=== PATIENT | male | born 1995 | race Caucasian/White ===

== ENCOUNTER → 2018-05-31 | Outpatient (CLI) | payer SELFPAY ==
--- NOTE | 2018-05-31 09:25 | Diagnostic Imaging Report ---
EXAM: RIGHT UPPER QUADRANT ULTRASOUND DATE: May 31, 2018. COMPARISON: None. INDICATION: 22-year-old male, right upper quadrant abdominal pain. PROCEDURE: Two-dimensional grayscale and color doppler ultrasound examination of the right upper quadrant is performed. FINDINGS: Liver: The liver is of normal size and echotexture without solid or cystic masses. Bile ducts and gallbladder: There is no pericholecystic fluid, gallbladder wall thickening or gallstones. The gallbladder wall measures 0.2 cm. There is no intrahepatic or extrahepatic biliary ductal dilation. The common bile duct measures 0.4 cm. Right kidney: Unremarkable right kidney. No hydronephrosis. The right kidney measures 11.0 cm x 5.1 cm x 4.2 cm. Pancreas: Normal visualized pancreas. IMPRESSION: 1. Unremarkable right upper quadrant ultrasound. Dictated by: Dictated on workstation # [id number]
== END ==
LOC: RAD 07:06 → EDSEX 08:15
PROVIDERS: ATTEND Physician Assistant
DX: R10.11 Right upper quadrant pain (principal)
CPT/HCPCS: 76705

== ENCOUNTER 2022-11-09 23:14 | Outpatient (CLI) | payer SELFPAY ==
[~2022-11-09] VITALS: Ht 172 cm; Wt 76.5 kg
[2022-11-09 23:42] VITALS: BP 121/81
[2022-11-09 23:46] LABS: BILIRUBIN,URINE NEGATIVE (NEGATIVE); CLARITY,URINE CLEAR; COLOR,URINE YELLOW; GLUCOSE, URINE (UA) NEGATIVE (NEGATIVE); KETONES,URINE NEGATIVE (NEGATIVE); LEUKOCYTE ESTERASE ,URINE NEGATIVE (NEGATIVE); NITRITE,URINE NEGATIVE (NEGATIVE); PROTEIN,URINE NEGATIVE (NEGATIVE)
[2022-11-09 23:56] LABS: BACTERIA,URINE FEW /HPF; SQUAMOUS EPITHELIAL CELL,UR RARE /HPF; WBC,URINE 0-2 /HPF
[2022-11-10 00:22] VITALS: BP 125/70
[2022-11-10 00:32] VITALS: BP 125/70
--- NOTE | 2022-11-10 08:46 | Physician Query-Final Dx ---
Clinic Account Progress/Dx Physician Query: Please give diagnosis Please include # weeks gestation Date of Service Nov 09, 2022 at 23:14 JOAQUIN,AugNov 10, 2022 08:46
== END 2022-11-10 00:32 ==
LOC: WSo 23:14 → LDRP 23:15 → WSo 11-10 00:32
PROVIDERS: ATTEND Family Medicine
DX: O26.893 Other specified pregnancy related conditions, third trimester (principal); R10.2 Pelvic and perineal pain; Z3A.38 38 weeks gestation of pregnancy
CPT/HCPCS: 81000; 99213

== ENCOUNTER 2022-11-11 09:27 | Outpatient (CLI) | payer MEDICAID ==
[~2022-11-11] VITALS: Ht 170.2 cm; Wt 75.9 kg
[2022-11-12] MEDS ORDERED: DOCU100C37 PO (13:15)
[2022-11-12] MEDS ORDERED: ACHD5005 PO (13:15)
[2022-11-12] MEDS ORDERED: IBUP-844 PO (13:15)
== END 2022-11-12 08:45 | disposition home or self-care (01) ==
LOC: PREOP 09:27
PROVIDERS: ATTEND Obstetrics & Gynecology
DX: Z01.818 Encounter for other preprocedural examination (principal); O32.1XX0 Maternal care for breech presentation, not applicable or unspecified; Z3A.00 Weeks of gestation of pregnancy not specified

== ENCOUNTER 2022-11-12 10:00 | Inpatient (IN) | payer MEDICAID ==
[~2022-11-12] VITALS: Ht 170.2 cm; Wt 76.5 kg
[2022-11-12] VITALS (10 sets, daily range): BP systolic 103–140; BP diastolic 63–99
[2022-11-12] MEDS ORDERED: METOCLOPRAMIDE INJ 10 MG/2 ML (REGLAN) IV ONE (10:30)
[2022-11-12] MEDS ORDERED: CITRIC ACID/SOB CIT (BICITRA) 30 ML UDC PO ONE (10:30)
[2022-11-12] MEDS ORDERED: LACTATED RINGERS 1,000 ML IV PRN ×2 (10:30)
[2022-11-12] MEDS ORDERED: CATHETER FLUSH 10 ML SYR IV PRN (10:30)
[2022-11-12] MEDS ORDERED: FAMOTIDINE 20MG/2ML IV (PEPCID) IV ONE (10:30)
[2022-11-12 10:38] LABS: BASOPHILS # (AUTO) 0.1 10^3/uL (0.0-0.1); BASOPHILS % (AUTO) 1 % (0-10); EOSINOPHILS # (AUTO) 0.1 10^3/uL (0.0-0.3); EOSINOPHILS % (AUTO) 0 % (0-10); HEMATOCRIT 36 % (35-52); HEMOGLOBIN 12.4 g/dL (11.5-16.0); LYMPHOCYTES # (AUTO) 2.7 10^3/uL (1.0-4.0); LYMPHOCYTES % (AUTO) 20 % (12-44); MEAN CORPUSCULAR HEMOGLOBIN 31 pg (25-34); MEAN CORPUSCULAR HGB CONC 35 g/dL (32-36); MEAN CORPUSCULAR VOLUME 88 fL (80-99); MEAN PLATELET VOLUME 11.8 fL (9.0-12.2); MONOCYTES % (AUTO) 7 % (0-12); NEUTROPHILS # (AUTO) 9.4 10^3/uL (1.8-7.8); NEUTROPHILS % (AUTO) 71 % (42-75); PLATELET COUNT 272 10^3/uL (130-400); WHITE BLOOD COUNT 13.3 10^3/uL (4.3-11.0)
[2022-11-12] MEDS ORDERED: CLINDAMYCIN 900 MG/50 ML IVPB 50 ML IV ONE (11:30)
[2022-11-12] MEDS ORDERED: metroNIDAZOLE 500MG/100ML IVPB 100 ML IV ONE (11:30)
--- NOTE | 2022-11-12 11:35 | History & Physical-OB/GYN ---
ELSA RENTERIA 11/12/22 1135: OB - Chief Complaint & HPI Date/Time Date of Admission: Date of Admission: Nov 12, 2022 at 10:00 Date seen by a Provider: Nov 12, 2022 Time Seen by a Provider: 11:40 Chief Complaint/History OB-Reason for Admission/Chief: Section Hx : 1 Hx Para: 0 Expected Date of Delivery: Nov 19, 2022 Gestational Age in Weeks: 39 Gestational Age in Days: 0 Indication for : malpresentation (breech) History of Labs O+ Antibody Neg RPR NR HIV NR HBsAg NR RI G/C Neg GBS Neg Allergies and Home Medications Allergies Coded Allergies: Penicillins (Verified Allergy, Mild, Itching, 11/11/22) amphetamine (Verified Allergy, Mild, Vomiting, 11/11/22) dextroamphetamine (Verified Allergy, Mild, Vomiting, 11/11/22) latex (Verified Allergy, Mild, Hives, 11/11/22) Patient Home Medication List Home Medication List Reviewed: Yes No Active Prescriptions or Reported Meds OB - History Hx of Present Care: Yes Ultrasounds: Abnormal US findings Abnormal Ultrasound Findings: breech Obstetrical Complications: Other (breech) Medical Complications: None Information Induced Hypertension: No Maternal Gestational Diabetes: No Hemorrhage: No Obstetrical History Hx : 1 Hx Para: 0 Hx Termination: No Hx Multiple Gestation: No Hx Ectopic : No Hx Stillbirth: No Hx Complication: No Hx Induced Hypertens: No Hx Maternal Gestational Diabet: No Hx Hemorrhage: No Delivery History Hx Dystocia: No Hx Forceps Assisted Delivery: No Hx Vacuum Extraction Assisted: No Hx Placenta Abnormality: No Hx Distress: No Hx Large For Gestational Age I: No Hx Small for Gestational Age I: No Hx Section: No Hx Vaginal Delivery Post C-Sec: No Hx Blood Disorders: No Adverse Rxn to Tranfusion: No Patient Past Medical History NC Social History/Family History Alcohol Use: Denies Use Recreational Drug Use: No Smoking Cessation: Never smoker 2nd Hand Smoke Exposure: No Immunizations Influenza Vaccine Up-to-Date: Yes; Up-to-Date Hepatitis A: No Hepatitis B: No Tetanus Booster (TDap): Less than 5yrs Rubella: immune RPR/VDRL: Negative GBS Status: Negative HBsAG: Negative OB - Admission Exam Physical Exam Vitals: Vital Signs 11/12/22 10:09 Temp 36.9 Pulse 83 Resp 18 Pulse Ox 97 O2 Delivery Room Air HEENT: PERRLA Heart: Rhythm Normal Lungs: Clear Abdomen: Gravid Extremities: Edema Reflexes: Normal Heart Rate: 140's Accelerations: Accelerations Present Decelerations: No Decelerations Short Term Variability: Present Mcfp Variability: Average (6-25) Contractions on Admission: None Labs Laboratory Tests Test 11/12/22 10:25 Range/Units White Blood Count 13.3 H 4.3-11.0 10^3/uL Red Blood Count 4.02 3.80-5.11 10^6/uL Hemoglobin 12.4 11.5-16.0 g/dL Hematocrit 36 35-52 % Mean Corpuscular Volume 88 80-99 fL Mean Corpuscular Hemoglobin 31 25-34 pg Mean Corpuscular Hemoglobin Concent 35 32-36 g/dL Red Cell Distribution Width 13.0 10.0-14.5 % Platelet Count 272 130-400 10^3/uL Mean Platelet Volume 11.8 9.0-12.2 fL Immature Granulocyte % (Auto) 1 % Neutrophils (%) (Auto) 71 42-75 % Lymphocytes (%) (Auto) 20 12-44 % Monocytes (%) (Auto) 7 0-12 % Eosinophils (%) (Auto) 0 0-10 % Basophils (%) (Auto) 1 0-10 % Neutrophils # (Auto) 9.4 H 1.8-7.8 10^3/uL Lymphocytes # (Auto) 2.7 1.0-4.0 10^3/uL Monocytes # (Auto) 1.0 0.0-1.0 10^3/uL Eosinophils # (Auto) 0.1 0.0-0.3 10^3/uL Basophils # (Auto) 0.1 0.0-0.1 10^3/uL Immature Granulocyte # (Auto) 0.1 0.0-0.1 10^3/uL OB - Assessment/Plan/Diagnosis Assessment Assessment: section Admission Dx at 39 weeks 0 days gestational age Breech presentation on ultrasound for breech presentation GBS Neg Otherwise uncomplicated Admission Status: Inpatient Order (span 2 midnights) Reason for Inpatient Admission: LTCS for breech presentation Plan Plan: Section KAMARI EARLY DO 11/12/22 1309: Allergies and Home Medications Allergies Coded Allergies: Penicillins (Verified Allergy, Mild, Itching, 11/11/22) amphetamine (Verified Allergy, Mild, Vomiting, 11/11/22) dextroamphetamine (Verified Allergy, Mild, Vomiting, 11/11/22) latex (Verified Allergy, Mild, Hives, 11/11/22) Patient Home Medication List No Active Prescriptions or Reported Meds Supervisory-Addendum Brief Verification & Attestation Participated in pt care: history Personally performed: exam Care discussed with: Medical Student Procedures: n/a Results interpretation: Verified all documentation Verification and Attestation of Medical Student E/M Service A medical student performed and documented this service in my presence. I revie wed and verified all information documented by the medical student and made modifications to such information, when appropriate. I personally performed the physical exam and medical decision making. Kamari Early Nov 12, 2022,13:09 ELSA RENTERIA Nov 12, 2022 11:35 KAMARI EARLY DO Nov 12, 2022 13:09
[2022-11-12] MEDS ORDERED: fentaNYL INJ 100 MCG/2 ML AMP ONE (12:18)
[2022-11-12] MEDS ORDERED: OXYTOCIN PRE-MIX DRIP 1,000 ML IV ONE (12:18)
[2022-11-12] MEDS ORDERED: ONDANSETRON 4 MG/2 ML (SDV) Z0FRAN ONE (12:18)
[2022-11-12] MEDS ORDERED: KETOROLAC 30 MG/ML VIAL ONE (12:48)
[2022-11-12] MEDS ORDERED: BUPIVACAINE 0.25% 10 ML (SENSORCAINE) VIAL ONE (12:49)
--- NOTE | 2022-11-12 13:14 | Discharge Inst-Women's Service ---
Discharge Inst-Women's Serv Depart Medication/Instructions New, Converted or Re-Newed RX: Transmitted to Pharmacy Final Diagnosis POD 2 PLTCS Problems Reviewed?: Yes Consults/Follow Up Additional Follow Up: Yes Orders/Referrals Dr. Bergman in 7-[address] Lu in 6 weeks Activity Activity: Activity as Tolerated Driving Instructions: No Driving for 1 Week NO SMOKING: NO SMOKING Nothing Inside Vagina: No Douching, No [place], No Tampons Diet Discharge Diet: No Restrictions Symptoms to Report to : Bleeding Excessive, Pain Increased, Fever Over 101 Degrees F, Vaginal Bleeding Increase, Questions/Concerns For Any Problems or Questions: Contact Your Physician Skin/Wound Care Infection Signs and Symptoms: Increased Redness, Foul Odor of Wound, Increased Drainage, Skin Itchy or Has a Rash, Increased Swelling, Temperature Above 101 F Operative Area Clean and Dry: Keep Incision Clean/Dry Stitches/Tin/Dermabond: Dermabond, Care of Stitches Bathing Instructions: KAMARI Hall DO Nov 12, 2022 13:14
[2022-11-12] MEDS ORDERED: TETANUS,DIPTH,PERTUSS P/F (BOOSTRIX) 0.5 ML VIAL IM SCH (13:15)
[2022-11-12] MEDS ORDERED: ONDANSETRON 4 MG/2 ML (SDV) Z0FRAN IVP PRN ×2 (13:15→14:00)
[2022-11-12] MEDS ORDERED: DOCU100C37 PO (13:15)
[2022-11-12] MEDS ORDERED: IBUP-844 PO (13:15)
[2022-11-12] MEDS ORDERED: MEASLES,MUMPS,RUBELLA 1 EA INJ SC SCH (13:15)
[2022-11-12] MEDS ORDERED: NALOXONE 0.4 MG/ML 1 ML (NARCAN) VIAL IV PRN ×3 (13:15→14:00)
[2022-11-12] MEDS ORDERED: ACHD5005 PO (13:15)
[2022-11-12] MEDS ORDERED: ONDANSETRON 4 MG/2 ML (SDV) Z0FRAN IV PRN (14:00)
[2022-11-12] MEDS ORDERED: METOCLOPRAMIDE INJ 10 MG/2 ML (REGLAN) IV PRN (14:00)
[2022-11-12] MEDS ORDERED: CATHETER FLUSH 10 ML SYR IV SCH (14:00)
[2022-11-12] MEDS ORDERED: morphine INJ 10 MG/ML 1ML (SYR OR VIAL) IVP ONE (14:00)
[2022-11-12] MEDS ORDERED: diphenhydrAMINE 50 MG/ML INJ (BENADRYL) IV PRN (14:00)
[2022-11-12] MEDS: OXYTOCIN PRE-MIX DRIP 500 ML IV SCH ×2 (14:30→19:34)
[2022-11-12] MEDS: HYDROcodone/APAP 5 MG/325 MG (LORTAB) TAB PO PRN (16:43)
--- NOTE | 2022-11-12 20:42 | OPERATIVE REPORT ---
PREOPERATIVE DIAGNOSES: 1. A 27-year-old G1, P0 at 39 weeks' gestation. 2. Complete breech presentation. POSTOPERATIVE DIAGNOSES: 1. A 27-year-old G1, P0 at 39 weeks' gestation. 2. Complete breech presentation. PROCEDURE: Primary low transverse section. SURGEON: Luis Enrique Early DO ANESTHESIA: Spinal. ESTIMATED BLOOD LOSS: 600 mL URINE OUTPUT: 50 mL clear at the end of the procedure. FLUIDS: 1300 mL lactated Ringer's solution. FINDINGS: A live male weighing 8 pounds 2 ounces, Apgars of 8 and 8. Grossly normal appearing bilateral fallopian tubes, ovaries and uterus. SPECIMEN SENT: None. INDICATIONS FOR PROCEDURE: This 27-year-old female, was a patient who had sought care with [facility]. Her care was uncomplicated with exception of mild presentation of the fetus, was again confirmed in my office in her preoperative visit as well as again in the labor and delivery unit as complete breech here today prior to surgery and I discussed with the patient the risk of vaginal delivery versus proceeding with . She was agreeable to proceed with after all the risks were discussed. Consent was obtained. The patient was taken to the operating room. OPERATIVE REPORT IN DETAIL: Once in the operating room, spinal analgesia was administered and found to be adequate, was placed in supine position with leftward tilt, prepped and draped in normal sterile fashion. A timeout was performed. Anesthesia was tested. I then make a Pfannenstiel skin incision with a knife and carried underlying fascia using Bovie cautery. Fascial incision extended laterally using Bovie cautery. Superior aspect of fascial incision grasped with Chase clamps, tented upward, and dissected off the underlying rectus muscles. The inferior aspect of the fascial incision was then grasped with Chase clamps, tented up and dissected off the underlying rectus muscles. Rectus muscles were dissected down the midline, which exposed the peritoneum, which I entered bluntly and extended using blunt traction. Yoni ring retractor was placed within the peritoneal incision, which offers excellent lateral sidewall retraction. I identified lower uterine segment was found to be thinned out. I make a low transverse incision to the vesicouterine peritoneum and bluntly dissected off the lower uterine segment, creating a bladder flap. I then proceeded with my myotomy until membranes were visualized, at which point I extended the uterine incision laterally and superiorly using Pack scissors. Amniotomy was then performed using Allis clamp. Clear fluid was noted. The infant was found in the breech presentation. The buttocks were elevated up to the incision where it is delivered through the incision up to the upper torso. I then elevated the 's into the air and delivered the arms by sweeping them across the chest and elevate the infant's up of the body and deliver the head through the incision by flexion. The nares and oropharynx were then bulb suctioned and was placed on the operative field where the cord was doubly clamped and cut and infant was handed off to waiting nurses in attendance. Cord blood collected. Three-vessel cord with intact placenta was delivered spontaneously thereafter. IV Pitocin was initiated to facilitate uterine contraction. Uterine fundus confirmed by manual massage. The uterus was exteriorized and cleared of all endometrial clots and debris. I then proceeded with closing the uterine incision using 0 Vicryl suture in a running locked fashion. Second layer of imbricating 0 Monocryl was placed. Excellent hemostasis was noted after doing this. I then placed the uterus back and pelvis copiously irrigated the pelvis using normal saline. Once again, there was no active bleeding from my dissection planes. I placed Interceed antiadhesive over my low transverse incision. I removed the Yoni ring retractor and then proceeded with closing the peritoneum using 3-0 Vicryl suture in a running fashion. The rectus muscles were reapproximated using 3-0 Vicryl suture in interrupted fashion. The fascia was reapproximated using 0 Vicryl suture in a running fashion. The subcutaneous tissue was reapproximated using 3-0 plain interrupted subcutaneous stitch and skin reapproximated using 4-0 Monocryl running subcuticular. Dermabond was applied to incision, sterile dressing with adhesive white tape. The patient tolerated the procedure well and sent to recovery area in stable condition. Lap and sponge count was correct at the end of the procedure. Instrument counts correct as well, 2 grams of Ancef were given preoperatively for infection prophylaxis. Job ID: [id number] DocumentID: [id number] Dictated Date: 11/12/2022 15:47:57 Quality Process Auditor Date: 11/12/2022 20:40:00 Dictated By: LUIS ENRIQUE EARLY DO
[2022-11-12] MEDS: DOCUSATE SODIUM 100 MG (COLACE) CAP PO SCH (20:46)
[2022-11-12] MEDS: KETOROLAC 30 MG/ML VIAL IV SCH (20:47)
[2022-11-13] MEDS: HYDROcodone/APAP 5 MG/325 MG (LORTAB) TAB PO PRN ×4 (00:09→19:05)
[2022-11-13 02:32] VITALS: BP 134/85
[2022-11-13] MEDS: KETOROLAC 30 MG/ML VIAL IV SCH ×3 (02:32→19:47)
[2022-11-13 06:43] VITALS: BP 132/90
[2022-11-13 06:46] LABS: BASOPHILS # (AUTO) 0.1 10^3/uL (0.0-0.1); BASOPHILS % (AUTO) 0 % (0-10); EOSINOPHILS # (AUTO) 0.1 10^3/uL (0.0-0.3); EOSINOPHILS % (AUTO) 1 % (0-10); HEMATOCRIT 31 % (35-52); HEMOGLOBIN 10.4 g/dL (11.5-16.0); LYMPHOCYTES # (AUTO) 2.9 10^3/uL (1.0-4.0); LYMPHOCYTES % (AUTO) 23 % (12-44); MEAN CORPUSCULAR HEMOGLOBIN 31 pg (25-34); MEAN CORPUSCULAR HGB CONC 34 g/dL (32-36); MEAN CORPUSCULAR VOLUME 91 fL (80-99); MEAN PLATELET VOLUME 12.1 fL (9.0-12.2); MONOCYTES # (AUTO) 0.9 10^3/uL (0.0-1.0); MONOCYTES % (AUTO) 7 % (0-12); NEUTROPHILS # (AUTO) 8.7 10^3/uL (1.8-7.8); NEUTROPHILS % (AUTO) 69 % (42-75); PLATELET COUNT 237 10^3/uL (130-400); WHITE BLOOD COUNT 12.6 10^3/uL (4.3-11.0)
--- NOTE | 2022-11-13 07:41 | Postpartum Progress Note ---
ELSA RENTERIA 11/13/22 0741: Note Note Day # 1 Subjective: Patient is without complaints. Ambulating, voiding. Tolerating a regular diet without nausea or vomiting. Normal lochia. Pain is well controlled with oral pain medications. Breast feeding. Objective: Patient is lying in bed at time of evaluation, no signs of distress. Physical Exam: General - Alert and oriented, no apparent distress Abdomen - Soft, appropriately tender to palpation, non-distended, fundus firm at umbilicus Extremities - no edema, negative Naima's bilaterally Incision c/d/i Assessment: POD 1 s/p LTCS Acute blood loss anemia Plan: Routine care. Encourage breast feeding. Encourage ambulation. Ferrous sulfate supplementation. Plan for discharge tomorrow. Vitals - Labs Vital Signs - I&O Vital Signs Date Time Temp Pulse Resp B/P (MAP) Pulse Ox O2 Delivery O2 Flow Rate FiO2 11/13/22 06:43 36.4 64 18 132/90 (104) 100 Room Air 11/13/22 02:32 36.1 51 18 134/85 (101) 99 Room Air 11/12/22 20:48 36.6 56 18 140/87 (104) 97 Room Air 11/12/22 16:30 36.8 62 16 127/65 (85) 99 Room Air 11/12/22 15:49 Room Air 11/12/22 15:25 36.9 58 16 130/75 (93) 100 Room Air 11/12/22 14:30 36.5 85 16 124/63 (83) 100 Room Air 11/12/22 14:10 Room Air 11/12/22 14:10 36.3 24 118/84 (95) 97 Room Air 11/12/22 14:00 Room Air 11/12/22 14:00 24 104/89 (94) 98 Room Air 11/12/22 13:50 20 108/99 (102) 99 Room Air 11/12/22 13:45 Room Air 11/12/22 13:40 20 103/84 (90) 99 Room Air 11/12/22 13:30 Room Air 11/12/22 13:30 36.2 16 103/69 (80) 99 Room Air 11/12/22 10:09 36.9 83 18 97 Room Air I & O 11/13/22 07:00 Intake Total 4350 ml Output Total 1100 ml Balance 3250 ml Labs Laboratory Tests 11/12/22 10:25: White Blood Count 13.3H, Red Blood Count 4.02, Hemoglobin 12.4, Hematocrit 36, Mean Corpuscular Volume 88, Mean Corpuscular Hemoglobin 31, Mean Corpuscular Hemoglobin Concent 35, Red Cell Distribution Width 13.0, Platelet Count 272, Mean Platelet Volume 11.8, Immature Granulocyte % (Auto) 1, Neutrophils (%) (Auto) 71, Lymphocytes (%) (Auto) 20, Monocytes (%) (Auto) 7, Eosinophils (%) (Auto) 0, Basophils (%) (Auto) 1, Neutrophils # (Auto) 9.4H, Lymphocytes # (Auto) 2.7, Monocytes # (Auto) 1.0, Eosinophils # (Auto) 0.1, Basophils # (Auto) 0.1, Immature Granulocyte # (Auto) 0.1 11/13/22 05:57: White Blood Count 12.6H, Red Blood Count 3.37L, Hemoglobin 10.4L, Hematocrit 31L , Mean Corpuscular Volume 91, Mean Corpuscular Hemoglobin 31, Mean Corpuscular Hemoglobin Concent 34, Red Cell Distribution Width 13.2, Platelet Count 237, Mean Platelet Volume 12.1, Immature Granulocyte % (Auto) 1, Neutrophils (%) (Auto) 69, Lymphocytes (%) (Auto) 23, Monocytes (%) (Auto) 7, Eosinophils (%) (Auto) 1, Basophils (%) (Auto) 0, Neutrophils # (Auto) 8.7H, Lymphocytes # (Auto) 2.9, Monocytes # (Auto) 0.9, Eosinophils # (Auto) 0.1, Basophils # (Auto) 0.1, Immature Granulocyte # (Auto) 0.1 KAMARI EARLY DO 11/13/22 0803: Note Note Verification and Attestation of Medical Student E/M Service A medical student performed and documented this service in my presence. I reviewed and verified all information documented by the medical student and made modifications to such information, when appropriate. I personally performed the physical exam and medical decision making. Kamari Early Nov 13, 2022,08:03 ELSA RENTERIA Nov 13, 2022 07:41 KAMRAI EARLY DO Nov 13, 2022 08:03
[2022-11-13] MEDS: DOCUSATE SODIUM 100 MG (COLACE) CAP PO SCH ×2 (08:05→20:26)
[2022-11-13 08:06] VITALS: BP 119/89
--- NOTE | 2022-11-13 10:21 | Anesthesia-Regional Post-Op ---
Regional Patient Condition Mental Status: Alert, Oriented x3 Circulation: Same as Pre-Op Headache: Absent Sensation: Full Recovery Motor Block: Absent Post Op Complications Complications None Follow Up Care/Instructions Patient Instructions None needed. Anesthesia/Patient Condition Patient is doing well, no complaints, stable vital signs, no apparent adverse anesthesia problems. No complications reported per nursing. SHANIA RECINOS CRNA Nov 13, 2022 10:21
[2022-11-13 14:07] VITALS: BP 116/78
[2022-11-13] MEDS: SIMETHICONE 80 MG (MYLICON) CHEW PO SCH ×4 (14:09→23:10)
[2022-11-13] MEDS: IBUPROFEN 600 MG (MOTRIN) TAB PO SCH ×2 (14:09→20:26)
[2022-11-13 20:26] VITALS: BP 118/82
[2022-11-14 02:09] VITALS: BP 119/82
[2022-11-14] MEDS: IBUPROFEN 600 MG (MOTRIN) TAB PO SCH ×2 (02:09→08:48)
[2022-11-14 08:35] VITALS: BP 133/93
[2022-11-14] MEDS: DOCUSATE SODIUM 100 MG (COLACE) CAP PO SCH (08:48)
--- NOTE | 2022-11-14 09:42 | Postpartum Progress Note ---
Note Note Day # 2 Subjective: Patient is without complaints. Ambulating, voiding. Tolerating a regular diet without nausea or vomiting. Normal lochia. Pain is well controlled with oral pain medications. Physical Exam: General - Alert and oriented, no apparent distress Abdomen - Soft, appropriately tender to palpation, non-distended, fundus firm at umbilicus; incision c/d/i Extremities - no edema, negative Naima's bilaterally Assessment: Post- day # 2, status post PLTCS for breech presentation Recovering well, hemodynamically stable Acute blood loss anemia Plan: Routine care. Encourage breast feeding. Encourage ambulation. Ferrous sulfate supplementation. Plan for discharge today Vitals - Labs Vital Signs - I&O Vital Signs Date Time Temp Pulse Resp B/P (MAP) Pulse Ox O2 Delivery O2 Flow Rate FiO2 11/14/22 08:35 36.6 84 20 133/93 (106) Room Air 11/14/22 02:09 36.2 66 18 119/82 (94) 97 Room Air 11/13/22 20:26 36.6 85 18 118/82 (94) 97 Room Air 11/13/22 14:07 36.7 68 18 116/78 (91) 95 Room Air TALI NOLASCO APRN Nov 14, 2022 09:42
[2022-11-14 11:45] VITALS: BP 133/93
== END 2022-11-14 12:45 | disposition home or self-care (01) | DRG 787 ==
LOC: LDRP 10:00
PROVIDERS: ADMIT Obstetrics & Gynecology; ATTEND Obstetrics & Gynecology
PROC: 10D00Z1 Extraction of Products of Conception, Low, Open Approach (ICD-10-PCS; principal; 2022-11-12 12:25)
DX: O64.1XX0 Obstructed labor due to breech presentation, not applicable or unspecified (principal); D62 Acute posthemorrhagic anemia; Z37.0 Single live birth; Z3A.39 39 weeks gestation of pregnancy; O90.81 Anemia of the puerperium; Z28.310 Unvaccinated for COVID-19
CPT/HCPCS: 36415; 85025; 86850; 86900; 86901; 94664